=== PATIENT | female | born 1990 | race Caucasian/White ===

== ENCOUNTER 2018-06-15 17:25 | Emergency (ER) | payer SELFPAY ==
--- NOTE | 2018-06-15 18:18 | ER Document Report ---
ED Psych Disorder / Suicide - General Stated Complaint: SUICIDAL IDEATION Time Seen by Provider: 06/15/18 18:04 Information source: Patient Notes: 28-year-old female who presents today with some increased depression above baseline. She just recently moved here back from [place] and normally takes Lexapro daily. Patient states she took 20 - 10 mg Lexapro tablets today as well as drinks 3 alcoholic beverages. She also superficially cut her left wrist. Next tetanus is up-to-date. Patient states that she is having some increased stress in her life. She is having a separation with her who she lives separately from. They are having custody issues regarding her 2 children who are 3 and 6 years of age. Patient denies any headache, neck pain, chest pain, abdominal pain, weakness or numbness. TRAVEL OUTSIDE OF THE [place] IN LAST 30 DAYS: No - HPI Onset: Other - See above Onset was: Gradual Severity: Mild Pain Level: 2 Suicide Risk Factors: Other - See above Situational problems related to: Other - See above Suicide Attempt Method: Other - See above Associated symptoms: Other - See above Similar symptoms previously: No Recently seen / treated by doctor: No - Related Data Allergies/Adverse Reactions: Sulfa (Sulfonamide Antibiotics) Allergy (Severe, Verified 06/07/15 11:39) Hives Past Medical History - General Information source: Patient - Social History Smoking Status: Unknown if Ever Smoked Family History: Reviewed & Not Pertinent - Past Medical History Cardiac Medical History: Denies: Hx Coronary Artery Disease, Hx Heart Attack, Hx Hypertension Pulmonary Medical History: Denies: Hx Asthma, Hx Bronchitis, Hx COPD, Hx Pneumonia Neurological Medical History: Denies: Hx Cerebrovascular Accident, Hx Seizures Musculoskeletal Medical History: Denies Hx Arthritis Psychiatric Medical History: Reports: Hx Depression Past Surgical History: Reports: Hx Orthopedic Surgery - left knee and wrist - Immunizations Immunizations up to date: Yes Hx Diphtheria, Pertussis, Tetanus Vaccination: Yes - 06/12/15 Review of Systems - Review of Systems Respiratory: denies: Short of breath Gastrointestinal: denies: Abdomen distended, Vomiting Genitourinary: denies: Dysuria Musculoskeletal: denies: Leg swelling Skin: Other - no hives. denies: Rash Neurological/Psychological: Other - no slurred speech -: Yes All other systems reviewed and negative Physical Exam - Vital signs Vitals: Temp Pulse Resp BP Pulse Ox 99.0 F 74 16 122/68 100 06/15/18 18:19 06/15/18 18:19 06/15/18 18:19 06/15/18 18:19 06/15/18 18:19 Notes: Reviewed vital signs and nursing note as charted by RN. CONSTITUTIONAL: Alert and oriented and responds appropriately to questions. Well -appearing; well-nourished HEAD: Normocephalic; atraumatic EYES: PERRL; no nystagmus noted ENT: Normal nose; no rhinorrhea; moist mucous membranes NECK: Supple without meningismus; non-tender CARD: Regular rate and rhythm; no murmurs; symmetric distal pulses RESP: Normal chest excursion without splinting or tachypnea; breath sounds clear and equal bilaterally ABD/GI: Normal bowel sounds; non-distended; soft, non-tender; no palpable organomegaly or masses BACK: The back appears normal and is non-tender to palpation EXT: Patient has some superficial abrasions to the volar aspect of the left distal wrist. Hemostatic SKIN: See above NEURO: Moves all extremities equally; Motor and sensory function intact PSYCH: The patient's mood and manner are appropriate. Grooming and personal hygiene are appropriate. Course - Re-evaluation Re-evalutation: 06/15/18 18:20 Patient is a 28-year-old female that presents today with some suicidal ideation and overdose ingestion of Lexapro. No nystagmus. Patient is oriented 4. We will clean and dressed the patient's volar aspect wrist abrasions. We will clean and dressed the wound appropriately. Bacitracin will be applied. Psychiatric consultation has been ordered. 06/15/18 19:08 Labs as recorded. Vital signs are stable. - Vital Signs Vital signs: Temp Pulse Resp BP Pulse Ox 99.0 F 74 16 122/68 100 06/15/18 18:19 06/15/18 18:19 06/15/18 18:19 06/15/18 18:19 06/15/18 18:19 - Laboratory Result Diagrams: 06/15/18 17:50 06/15/18 17:50 Laboratory results interpreted by me: 06/15/18 17:50 Salicylates < 1.0 L Acetaminophen < 10 L Discharge - Discharge Clinical Impression: Suicidal ideations Abrasion of arm, left Qualifiers: Encounter type: initial encounter Qualified Code(s): S40.812A - Abrasion of left upper arm, initial encounter Condition: Fair Referrals: EMELIA MARCUM CNM [ACTIVE STAFF] - Follow up as needed
[2018-06-15 18:43] LABS: ABSOLUTE LYMPHOCYTES (AUTO) 1.8 10^3/uL (0.5-4.7); ABSOLUTE MONOCYTES (AUTO) 0.5 10^3/uL (0.1-1.4); ABSOLUTE NEUT (AUTO) 5.2 10^3/uL (1.7-8.2); BASOPHILS % (AUTO) 0.5 % (0-2); EOSINOPHILS % (AUTO) 0.2 % (0-6); HEMATOCRIT 38.1 % (36.0-47.0); HEMOGLOBIN 12.8 g/dL (12.0-15.5); LYMPHOCYTES % (AUTO) 24.3 % (13-45); MEAN CORPUSCULAR HEMOGLOBIN 28.8 pg (27.0-33.4); MEAN CORPUSCULAR HGB CONC 33.7 g/dL (32.0-36.0); MEAN CORPUSCULAR VOLUME 85 fl (80-97); MONOCYTES % (AUTO) 6.1 % (3-13); PLATELET COUNT 240 10^3/uL (150-450); RED BLOOD COUNT 4.46 10^6/uL (3.72-5.28); SEGMENTED NEUTROPHILS % (AUTO) 68.9 % (42-78); TOTAL CELLS COUNTED % (AUTO) 100 %; WHITE BLOOD COUNT 7.6 10^3/uL (4.0-10.5)
[2018-06-15 18:47] LABS: APPEARANCE,URINE CLEAR; BILIRUBIN,URINE NEGATIVE (NEGATIVE); COLOR,URINE STRAW; GLUCOSE, URINE NEGATIVE (NEGATIVE); KETONES,URINE NEGATIVE (NEGATIVE); LEUKOCYTE ESTERASE,URINE NEGATIVE (NEGATIVE); NITRITE,URINE NEGATIVE (NEGATIVE); PROTEIN,URINE NEGATIVE (NEGATIVE); URINE SPECIFIC GRAVITY 1.004; UROBILINOGEN,URINE NEGATIVE mg/dL (<2.0)
[2018-06-15 18:55] LABS: ALANINE AMINOTRANSFERASE 23 U/L (9-52); ALBUMIN 4.9 g/dL (3.5-5.0); ALCOHOL 59 mg/dL (NONE DETECTED); ALKALINE PHOSPHATASE 56 U/L (38-126); ANION GAP 14 (5-19); ASPARTATE AMINO TRANSFERASE 32 U/L (14-36); BILIRUBIN,DIRECT 0.3 mg/dL (0.0-0.4); BILIRUBIN,TOTAL 0.4 mg/dL (0.2-1.3); BLOOD UREA NITROGEN 7 mg/dL (7-20); CALCIUM 9.5 mg/dL (8.4-10.2); CARBON DIOXIDE 25 mmol/L (22-30); CHLORIDE 102 mmol/L (98-107); GLUCOSE 90 mg/dL (75-110); POTASSIUM 3.6 mmol/L (3.6-5.0); SODIUM 140.8 mmol/L (137-145); TOTAL PROTEIN 8.1 g/dL (6.3-8.2)
[2018-06-15 18:57] LABS: ACETAMINOPHEN < 10 ug/mL (10-30); SALICYLATE < 1.0 mg/dL (2.0-20.0)
[2018-06-15 19:04] LABS: URINE AMPHETAMINES SCREEN UNCONFIRMED POSITIVE; URINE BARBITURATES SCREEN NEGATIVE; URINE BENZODIAZEPINES SCREEN NEGATIVE; URINE COCAINE SCREEN NEGATIVE; URINE MARIJUANA (THC) SCREEN NEGATIVE; URINE METHADONE SCREEN NEGATIVE; URINE PHENCYCLIDINE SCREEN NEGATIVE
--- NOTE | 2018-06-16 07:45 | EKG REPORT ---
SEVERITY:- BORDERLINE ECG - SINUS RHYTHM BORDERLINE T ABNORMALITIES, ANTERIOR LEADS BORDERLINE PROLONGED QT INTERVAL : Confirmed by: Johnie Allan MD 16-Jun-2018 07:44:55
[2018-06-16 09:08] VITALS: BP 120/65
--- NOTE | 2018-06-16 10:15 | ER Document Report ---
Doctor's Note Notes: 06/16/18 10:13 Rounds: Chart reviewed and patient interviewed. Patient being evaluated for depression and suicidal ideation. She supposedly was drinking alcohol yesterday and took an overdose, she says, of 20-30 Lexapro which were prescribed for her. Vital signs were all essentially normal. Lab studies are all essentially normal except for her alcohol level of 59 and amphetamine level positive on drug screen. I suspect the Lexapro might affect the results of that amphetamine test. Patient says she feels better today. Patient appears to be medically stable for transfer or discharge. Boo Camacho MD
--- NOTE | 2018-06-24 06:47 | PSYCHOLOGICAL NOTE ---
Psych Note - Psych Note Psych Note: Reason for consult: suicidal ideation 28-year-old female who presents today with some increased depression above baseline. She just recently moved here back from [place] and normally takes Lexapro daily. Patient disclosed that she arrived to [facility] ED via EMS because she has "tried to hurt myself." She confirms is the first time he has been feeling this way on and off for 1-1/2 months due to dissolve her marriage, separation, child support issues and finances. She reports that she could not feel "I was numb and wanted to feel something so I took my medication... I remember... But is foggy... I took Lexapro but I still could not feel so I tried cutting. I could not go deep enough and then did not want the kids my ex- coming in and seeing which may me get mad... so I started drinking." She confirms that she is one who called 911. She disclosed that she used to have an outpatient mental health provider in [place] but after moving here one half month ago she has not set up services. She reports diagnosis of depression and anxiety. She reports that her trigger was financial and child support stating that her ex- is a marine and "manipulative." She disclosed that her finances are very slim and has been working 2 jobs but since he is not paying any child support really is been difficult. 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 Patient states "on the end of the day I do not want him raising my kids... I do not know what I was thinking... I do not want to ." Patient reports her mother is currently in route to come stay with her and help. Patient is alert and orientated to person, place, time and circumstance. Mood is euthymic with congruent affect. Clinician notes patient arrived with intentional overdose with superficial cuts on her wrists. Patient openly engaged with clinician on her thoughts and feelings surrounding those events denies current suicidal ideation. Patient denies homicidal ideation. Delusions are absent behaviors congruent with an intact reality based presentation i.e. organized and linear thought process. Eye contact was well- maintained. Conversational speech is within normal rate, tone and prosody. Intellectual abilities appear to be within the average range. Attention and concentration are good. Insight, judgment, impulse control are currently good as evidenced by openly engaging with clinician and truly exploring the event, triggers, coping skills, support system. 311 (F32.9) unspecified depressive disorder Impression\\plan: Patient is cleared from acute psychiatric services. Patient no longer meets IVC criteria per [place] GS 120 2C. Patient confirms suicidal ideation with gesture previous evening; however, patient openly engaging with clinician and truly exploring the event, triggers, coping skills, support system. Patient's friend confirms she will be assisting with the patient and would only be like to be part of the discharge plan (i.e. no access to medications/ weapons and follows through is with mental health recommendations) in addition to the patient's mother who is currently in route and will be landing at the airport momentarily. Patient is recommended to follow-up with outpatient mental services has provided local resource list. Dr. Carlin was consulted and the care and management this patient; attending physician is in agreement with recommendations and disposition.
== END 2018-06-16 14:00 | disposition home or self-care (01) ==
LOC: ER 17:25
DX: R45.851 Suicidal ideations (principal); S40.812A Abrasion of left upper arm, initial encounter; X58.XXXA Exposure to other specified factors, initial encounter; Z88.2 Allergy status to sulfonamides
CPT/HCPCS: 36415; 80053; 80307; 81001; 85025; 93005; 93010; 99285

== ENCOUNTER → 2018-12-31 | Outpatient (CLI) | payer OTHER | LOC: OD 16:32 | PROVIDERS: ATTEND Family Medicine | DX: E06.3 Autoimmune thyroiditis (principal) | CPT/HCPCS: 36415; 84443 ==

== ENCOUNTER → 2019-01-22 | Outpatient (CLI) | payer OTHER | LOC: OD 15:47 | PROVIDERS: ATTEND Obstetrics & Gynecology | DX: Z32.01 Encounter for pregnancy test, result positive (principal); O36.80X0 Pregnancy with inconclusive fetal viability, not applicable or unspecified | CPT/HCPCS: 36415; 84702; 86850; 86900; 86901 ==

== ENCOUNTER → 2019-01-28 | Outpatient (CLI) | payer OTHER | LOC: OD 16:11 | PROVIDERS: ATTEND Family Medicine | DX: E06.3 Autoimmune thyroiditis (principal) | CPT/HCPCS: 36415; 84443 ==

== ENCOUNTER 2019-01-31 17:50 | Emergency (ER) | payer OTHER ==
[2019-01-31 18:21] VITALS: BP 122/74
--- NOTE | 2019-01-31 19:13 | ER Document Report ---
ED Medical Screen (RME) - General Chief Complaint: Vag Bleeding, +preg <12wks Stated Complaint: ABDOMINAL PAIN Time Seen by Provider: 01/31/19 19:01 Primary Care Provider: MANJULA BURNETT MD [Primary Care Provider] - Follow up as needed Mode of Arrival: Ambulatory Information source: Patient Notes: Patient presents the emergency department with complaints of vaginal bleeding. She states that she had a positive test on at [facility] recently. She states the bleeding started on and she is passing clots. Patient reports changing a pad every 4 hours. Reports low abdominal cramping. Patient has blood typing on record at [facility] and her blood type is O+ so RhoGam workup was not ordered from triage. Exam: Patient alert, oriented with no acute distress noted. Abdomen soft, nontender. I have greeted and performed a rapid initial assessment of this patient. A comprehensive ED assessment and evaluation of the patient, analysis of test results and completion of the medical decision making process will be conducted by additional ED providers. Dictation of this chart was performed using voice recognition software; therefore, there may be some unintended grammatical errors. TRAVEL OUTSIDE OF THE [place] IN LAST 30 DAYS: No - Related Data Allergies/Adverse Reactions: Sulfa (Sulfonamide Antibiotics) Allergy (Severe, Verified 06/07/15 11:39) Hives Past Medical History - Social History Chew tobacco use (# tins/day): No Frequency of alcohol use: Occasional Drug Abuse: None - Past Medical History Cardiac Medical History: Denies: Hx Coronary Artery Disease, Hx Heart Attack, Hx Hypertension Pulmonary Medical History: Denies: Hx Asthma, Hx Bronchitis, Hx COPD, Hx Pneumonia Neurological Medical History: Denies: Hx Cerebrovascular Accident, Hx Seizures Renal/ Medical History: Denies: Hx Peritoneal Dialysis Musculoskeltal Medical History: Denies Hx Arthritis Psychiatric Medical History: Reports: Hx Depression Past Surgical History: Reports: Hx Orthopedic Surgery - left knee and wrist - Immunizations Immunizations up to date: Yes Hx Diphtheria, Pertussis, Tetanus Vaccination: Yes - 06/12/15 Physical Exam - Vital signs Vitals: Temp Pulse Resp BP Pulse Ox 98.5 F 84 16 122/74 99 01/31/19 18:19 01/31/19 18:19 01/31/19 18:19 01/31/19 18:19 01/31/19 18:19 Course - Vital Signs Vital signs: Temp Pulse Resp BP Pulse Ox 98.5 F 84 16 122/74 99 01/31/19 18:19 01/31/19 18:19 01/31/19 18:19 01/31/19 18:19 01/31/19 18:19 Doctor's Discharge - Discharge Referrals: MANJULA BURNETT MD [Primary Care Provider] - Follow up as needed
[2019-01-31 19:35] LABS: ABSOLUTE BASOPHILS # (AUTO) 0.1 10^3/uL (0.0-0.2); ABSOLUTE EOSINOPHILS # (AUTO) 0.1 10^3/uL (0.0-0.6); ABSOLUTE LYMPHOCYTES (AUTO) 2.1 10^3/uL (0.5-4.7); ABSOLUTE MONOCYTES (AUTO) 0.7 10^3/uL (0.1-1.4); ABSOLUTE NEUT (AUTO) 5.9 10^3/uL (1.7-8.2); BASOPHILS % (AUTO) 0.6 % (0-2); EOSINOPHILS % (AUTO) 1.3 % (0-6); HEMATOCRIT 33.4 % (36.0-47.0); HEMOGLOBIN 11.4 g/dL (12.0-15.5); LYMPHOCYTES % (AUTO) 24.1 % (13-45); MEAN CORPUSCULAR HEMOGLOBIN 29.9 pg (27.0-33.4); MEAN CORPUSCULAR HGB CONC 34.2 g/dL (32.0-36.0); MEAN CORPUSCULAR VOLUME 88 fl (80-97); PLATELET COUNT 276 10^3/uL (150-450); RED BLOOD COUNT 3.82 10^6/uL (3.72-5.28); RED CELL DISTRIBUTION WIDTH 14.8 % (11.5-14.0); TOTAL CELLS COUNTED % (AUTO) 100 %; WHITE BLOOD COUNT 8.9 10^3/uL (4.0-10.5)
[2019-01-31 19:45] LABS: APPEARANCE,URINE CLEAR; BILIRUBIN,URINE NEGATIVE (NEGATIVE); COLOR,URINE YELLOW; GLUCOSE, URINE NEGATIVE (NEGATIVE); KETONES,URINE NEGATIVE (NEGATIVE); LEUKOCYTE ESTERASE,URINE NEGATIVE (NEGATIVE); NITRITE,URINE NEGATIVE (NEGATIVE); PROTEIN,URINE NEGATIVE (NEGATIVE); URINE SPECIFIC GRAVITY 1.013; UROBILINOGEN,URINE NEGATIVE mg/dL (<2.0)
--- NOTE | 2019-01-31 20:11 | ER Document Report ---
ED General - General Chief Complaint: Vag Bleeding, +preg <12wks Stated Complaint: ABDOMINAL PAIN Time Seen by Provider: 01/31/19 19:01 Primary Care Provider: MANJULA BURNETT MD [Primary Care Provider] - Follow up as needed Mode of Arrival: Ambulatory Information source: Patient TRAVEL OUTSIDE OF THE [place] IN LAST 30 DAYS: No - HPI Patient complains to provider of: Vaginal bleeding in Onset: Other - 3 days Onset/Duration: Waxing and waning Quality of pain: Cramping, Pressure Severity: Moderate Pain Level: 3 Associated symptoms: denies: Chills, Fever Exacerbated by: Denies Relieved by: Denies Similar symptoms previously: No Recently seen / treated by doctor: No Notes: 29-year-old female who is 3 para 2 here with a very early first trimester . About a week ago she had a positive beta that was 14. They did an ultrasound and actually did not see anything at the time. Starting on patient developed some low abdominal cramping which was waxing and waning and is having intermittent vaginal bleeding and low back pressure. Denies fevers and chills. Denies nausea and vomiting and diarrhea - Related Data Allergies/Adverse Reactions: Sulfa (Sulfonamide Antibiotics) Allergy (Severe, Verified 06/07/15 11:39) Hives Past Medical History - General Information source: Patient - Social History Smoking Status: Never Smoker Chew tobacco use (# tins/day): No Frequency of alcohol use: Occasional Drug Abuse: None Family History: Reviewed & Not Pertinent Patient has suicidal ideation: No Patient has homicidal ideation: No - Past Medical History Cardiac Medical History: Denies: Hx Coronary Artery Disease, Hx Heart Attack, Hx Hypertension Pulmonary Medical History: Denies: Hx Asthma, Hx Bronchitis, Hx COPD, Hx Pneumonia Neurological Medical History: Denies: Hx Cerebrovascular Accident, Hx Seizures Renal/ Medical History: Denies: Hx Peritoneal Dialysis Musculoskeletal Medical History: Denies Hx Arthritis Psychiatric Medical History: Reports: Hx Depression Past Surgical History: Reports: Hx Orthopedic Surgery - left knee and wrist - Immunizations Immunizations up to date: Yes Hx Diphtheria, Pertussis, Tetanus Vaccination: Yes - 06/12/15 Review of Systems - Review of Systems Notes: Constitutional: No fevers. No chills. EENT: No eye redness. No eye pain. No ear pain. No sore throat. Cardiovascular: No chest pain. No palpitations. Respiratory: No cough. No shortness of breath. No respiratory distress. Gastrointestinal: No abdominal pain. No nausea, vomiting, or diarrhea. Genitourinary: Atraumatic. No lesions. Positive for pelvic pain and vaginal bleeding. Musculoskeletal: Atraumatic. No swelling. No deformities. Skin: No rash or lesions. Lymphatic: No swollen lymph nodes. Neurologic: No headache. No syncope. Psychiatric: No suicidal or homicidal ideation. Physical Exam - Vital signs Vitals: Temp Pulse Resp BP Pulse Ox 98.5 F 84 16 122/74 99 01/31/19 18:19 01/31/19 18:19 01/31/19 18:19 01/31/19 18:19 01/31/19 18:19 - Notes Notes: General: Well-developed, well-nourished. In no acute distress. Non-toxic appe aring. Cardiac: Well-perfused. Regular rate and rhythm. No murmurs, rubs, or gallops. Pulmonary: No respiratory distress. No cyanosis. Bilateral lung fiels are clear to auscultation. Abdominal: Non-distended. Non-rigid. Bowels sounds are present in all four quadrants. No guarding or rebound. HEENT: Head is atraumatic. Conjunctivae not reddened. No tearing. PERRL. EOMI. Orbits atraumatic. No periorbital swelling or erythema. Oropharynx is without erythema, swelling, or exudates. Neck: Supple. No adenopathy. No meningismus. Dermatologic: Warm with good turgor. No rash. Atraumatic. Chest: Atraumatic. No chest wall tenderness to palpation. Musculoskeletal: Moves all extremities well. No range of motion deficits. no muscular or joint tenderness. No paraspinal muscle tenderness. no midline spinal tenderness or step-off. Genitourinary: Examination deferred Neurologic: No gross neurologic deficits. Psychiatric: Normal mood. Course - Re-evaluation Re-evalutation: 01/31/19 20:11 Patient is comfortable. Appropriate workup ordered from [facility]. 01/31/19 21:05 Beta hCG is in the 300s. Still no evidence of IUP at this time. Discussed the findings with the patient. I think probably in a couple of days she should get her hCG rechecked to see if she has an upward or downward trend. She understands the numbers are going down instead of up she is probably miscarrying. We will have her return to the ED in 2 days or follow-up with Dr. Hogan's office in the clinic. - Vital Signs Vital signs: Temp Pulse Resp BP Pulse Ox 98.5 F 84 16 122/74 99 01/31/19 18:19 01/31/19 18:19 01/31/19 18:19 01/31/19 18:19 01/31/19 18:19 - Laboratory Result Diagrams: 01/31/19 19:20 Laboratory results interpreted by me: 01/31/19 01/31/19 01/31/19 19:20 19:20 19:20 Hgb 11.4 L Hct 33.4 L RDW 14.8 H Beta HCG, Quant 317.72 H Urine Blood LARGE H Discharge - Discharge Clinical Impression: Threatened miscarriage Condition: Good Disposition: HOME, SELF-CARE Instructions: Threatened Miscarriage ([facility]) Additional Instructions: At this point in time, your hormone levels are too low to be able to see anything on ultrasound. In a couple of days we should recheck your numbers and see if they are trending upward or downward. If they are trending upward, you will need continued follow-up for viable . If downward, probable miscarriage has occurred. Referrals: MANJULA BURNETT MD [Primary Care Provider] - Follow up as needed
--- NOTE | 2019-01-31 20:50 | RADIOLOGY REPORT (SQ) ---
EXAM DESCRIPTION: [facility]: US TRANSVAGINAL CLINICAL HISTORY: 29 years Female; +preg, vaginal bleeding LMP unknown Beta-hCG pending TECHNIQUE: Endovaginal pelvic ultrasound was performed. COMPARISON: None. FINDINGS: Uterus: . 7.2 x 3.4 x 5 cm with 13 mm thick endometrial canal. No intrauterine gestational sac or other intrauterine structures. Cervix is 3 cm long Right ovary: 3.1 x 1.4 x 2.5 cm there is a cystic area with internal echoes and marginal hyperemia 1.7 cm diameter, possibly corpus luteum cyst. Normal ovarian vascular flow on Doppler. Left ovary: 1.7 x 1.4 x 1.2 cm. Normal vascular flow on Doppler. No free fluid. No adnexal masses. IMPRESSION: 1. No intrauterine gestational sac. This may be too early for visualization. Please correlate with beta hCG. 2. Probable right corpus luteum cyst
== END 2019-01-31 21:15 | disposition home or self-care (01) ==
LOC: ER 17:50
DX: O20.0 Threatened abortion (principal); O26.891 Other specified pregnancy related conditions, first trimester; R10.2 Pelvic and perineal pain; R29.898 Other symptoms and signs involving the musculoskeletal system; Z3A.00 Weeks of gestation of pregnancy not specified; O99.89 Other specified diseases and conditions complicating pregnancy, childbirth and the puerperium; Z88.2 Allergy status to sulfonamides
CPT/HCPCS: 36415; 76817; 81001; 84702; 85025; 99284

== ENCOUNTER → 2019-03-25 | Outpatient (CLI) | payer OTHER | LOC: OD 13:31 | PROVIDERS: ATTEND Family Medicine | DX: E06.3 Autoimmune thyroiditis (principal) | CPT/HCPCS: 36415; 84443 ==

== ENCOUNTER → 2019-04-28 | Outpatient (CLI) | payer OTHER | LOC: OD 14:04 | PROVIDERS: ATTEND Family Medicine | DX: E06.3 Autoimmune thyroiditis (principal) | CPT/HCPCS: 36415; 84443 ==